=== PATIENT | female | born 1955 | race Caucasian/White ===

== ENCOUNTER 2016-12-20 07:48 | Emergency (ER) | payer MEDICARE, OTHER ==
[2016-12-20 08:14] VITALS: RESP 18; TEMP 98.6
[2016-12-20] MEDS ORDERED: ONDANSETRON 4 MG/2 ML VIAL IVP STA (08:15)
[2016-12-20] MEDS ORDERED: SODIUM CHLORIDE 0.9% 1,000 ML IV STA (08:15)
--- NOTE | 2016-12-20 08:30 | ED ---
Nausea/Vomiting/Diarrhea HPI - General Chief complaint: Nausea/Vomiting/Diarrhea Stated complaint: sick, vomiting Time Seen by Provider: 12/20/16 08:15 Source: patient, RN notes reviewed Mode of arrival: wheelchair Limitations: no limitations - History of Present Illness Initial comments: 61-year-old female presents emergency Department with chief complaint of nausea vomiting diarrhea that started yesterday. Patient states that her granddaughter had similar symptoms. Patient denies any fever or chills. Patient denies any chest pain, shortness of breath. She states she does have some back pain though the back pain has been gone for a while. Patient denies any dysuria hematuria she did admit to having a recent UTI. Patient denies any recent abdominal surgeries. She does have a history of a cholecystectomy. Patient states that she's been having her back pain over a few months and has not seen her primary care physician. States it's central lower to right side. - Related Data Home Medications Medication Instructions Recorded Confirmed Atorvastatin [Lipitor] 40 mg PO HS 12/20/16 12/20/16 Budesonide/Formoterol Fumarate 2 puff INHALATION RT-BID 12/20/16 12/20/16 [Symbicort 80-4.5 Mcg Inhaler] Ezetimibe [Zetia] 10 mg PO DAILY 12/20/16 12/20/16 Irbesartan 300 mg PO DAILY 12/20/16 12/20/16 Modafinil [Provigil] 300 mg PO DAILY 12/20/16 12/20/16 Montelukast [Singulair] 10 mg PO HS 12/20/16 12/20/16 Pregabalin [Lyrica] 75 mg PO BID 12/20/16 12/20/16 oxyCODONE-APAP 5-325MG [Percocet 1 tab PO Q6HR PRN 12/20/16 12/20/16 5-325 mg] Previous Rx's Medication Instructions Recorded Ondansetron Odt [Zofran Odt] 4 mg PO Q8HR PRN #10 tab 12/20/16 Allergies Allergy/AdvReac Type Severity Reaction Status Date / Time No Known Allergies Allergy Verified 12/20/16 08:40 Review of Systems ROS Statement: Those systems with pertinent positive or pertinent negative responses have been documented in the HPI. ROS Other: All systems not noted in ROS Statement are negative. Past Medical History Past Medical History: Asthma, Cancer, Fibromyalgia, Hyperlipidemia, Hypertension , Osteoarthritis (OA), Pneumonia Additional Past Medical History / Comment(s): chronic back pain History of Any Multi-Drug Resistant Organisms: None Reported Past Surgical History: Orthopedic Surgery, Tonsillectomy Additional Past Surgical History / Comment(s): tumor removal , right knee , vaginal tumor (cancer) Past Psychological History: No Psychological Hx Reported Smoking Status: Former smoker Past Alcohol Use History: None Reported Past Drug Use History: None Reported General Exam Limitations: no limitations General appearance: alert, in no apparent distress Head exam: Present: atraumatic, normocephalic, normal inspection Neck exam: Present: normal inspection. Absent: tenderness, meningismus, lymphadenopathy Respiratory exam: Present: normal lung sounds bilaterally. Absent: respiratory distress, wheezes, rales, rhonchi, stridor Cardiovascular Exam: Present: regular rate, normal rhythm, normal heart sounds. Absent: systolic murmur, diastolic murmur, rubs, gallop, clicks GI/Abdominal exam: Present: soft, tenderness (Mild diffuse), normal bowel sounds. Absent: distended, guarding, rebound, rigid Back exam: Present: full ROM. Absent: tenderness, CVA tenderness (R), CVA tenderness (L), muscle spasm, paraspinal tenderness, vertebral tenderness Neurological exam: Present: alert, oriented X3, CN II-XII intact Skin exam: Present: warm, dry, intact, normal color. Absent: rash Course Vital Signs 12/20/16 12/20/16 12/20/16 08:08 09:58 11:14 Temperature 98.6 F Pulse Rate 104 H 95 62 Respiratory 18 18 18 Rate Blood Pressure 126/75 150/66 147/68 O2 Sat by Pulse 96 97 95 Oximetry Medical Decision Making - Medical Decision Making 61-year-old female presented for abdominal pain nausea vomiting diarrhea. Patient has gastroenteritis. Patient will be discharged with Zofran. Return parameters were discussed. - Lab Data Result diagrams: 12/20/16 10:27 12/20/16 10:27 Lab Results 12/20/16 12/20/16 12/20/16 Range/Units 10:27 10:27 10:27 WBC 13.5 H (3.8-10.6) k/uL RBC 4.87 (3.80-5.40) m/uL Hgb 14.1 (11.4-16.0) gm/dL Hct 43.7 (34.0-46.0) % MCV 89.7 (80.0-100.0) fL MCH 28.9 (25.0-35.0) pg MCHC 32.3 (31.0-37.0) g/dL RDW 12.3 (11.5-15.5) % Plt Count 276 (150-450) k/uL Neutrophils % 94 % Lymphocytes % 2 % Monocytes % 2 % Eosinophils % 1 % Basophils % 0 % Neutrophils # 12.7 H (1.3-7.7) k/uL Lymphocytes # 0.3 L (1.0-4.8) k/uL Monocytes # 0.3 (0-1.0) k/uL Eosinophils # 0.1 (0-0.7) k/uL Basophils # 0.0 (0-0.2) k/uL Sodium 143 (137-145) mmol/L Potassium 3.8 (3.5-5.1) mmol/L Chloride 105 (98-107) mmol/L Carbon Dioxide 23 (22-30) mmol/L Anion Gap 15 mmol/L BUN 26 H (7-17) mg/dL Creatinine 0.55 (0.52-1.04) mg/dL Est GFR (MDRD) Af Amer >60 (>60 ml/min/1.73 sqM) Est GFR (MDRD) Non-Af >60 (>60 ml/min/1.73 sqM) Glucose 124 H (74-99) mg/dL Calcium 9.2 (8.4-10.2) mg/dL Total Bilirubin 0.5 (0.2-1.3) mg/dL AST 26 (14-36) U/L ALT 40 (9-52) U/L Alkaline Phosphatase 113 (38-126) U/L Troponin I <0.012 (0.000-0.034) ng/mL Total Protein 7.1 (6.3-8.2) g/dL Albumin 4.2 (3.5-5.0) g/dL Amylase 59 (30-110) U/L Lipase 33 (23-300) U/L Urine Color Urine Appearance (Clear) Urine pH (5.0-8.0) Urine Protein (Negative) Urine Glucose (UA) (Negative) Urine Ketones (Negative) Urine Blood (Negative) Urine Nitrate (Negative) Urine Bilirubin (Negative) Urine Urobilinogen (<2.0) mg/dL Ur Leukocyte Esterase (Negative) Urine RBC (0-5) /hpf Urine WBC (0-5) /hpf Ur Squamous Epith Cells (0-4) /hpf Urine Mucus (None) /hpf 12/20/16 Range/Units 12:24 WBC (3.8-10.6) k/uL RBC (3.80-5.40) m/uL Hgb (11.4-16.0) gm/dL Hct (34.0-46.0) % MCV (80.0-100.0) fL MCH (25.0-35.0) pg MCHC (31.0-37.0) g/dL RDW (11.5-15.5) % Plt Count (150-450) k/uL Neutrophils % % Lymphocytes % % Monocytes % % Eosinophils % % Basophils % % Neutrophils # (1.3-7.7) k/uL Lymphocytes # (1.0-4.8) k/uL Monocytes # (0-1.0) k/uL Eosinophils # (0-0.7) k/uL Basophils # (0-0.2) k/uL Sodium (137-145) mmol/L Potassium (3.5-5.1) mmol/L Chloride (98-107) mmol/L Carbon Dioxide (22-30) mmol/L Anion Gap mmol/L BUN (7-17) mg/dL Creatinine (0.52-1.04) mg/dL Est GFR (MDRD) Af Amer (>60 ml/min/1.73 sqM) Est GFR (MDRD) Non-Af (>60 ml/min/1.73 sqM) Glucose (74-99) mg/dL Calcium (8.4-10.2) mg/dL Total Bilirubin (0.2-1.3) mg/dL AST (14-36) U/L ALT (9-52) U/L Alkaline Phosphatase (38-126) U/L Troponin I (0.000-0.034) ng/mL Total Protein (6.3-8.2) g/dL Albumin (3.5-5.0) g/dL Amylase (30-110) U/L Lipase (23-300) U/L Urine Color Yellow Urine Appearance Clear (Clear) Urine pH 6.0 (5.0-8.0) Urine Protein 1+ H (Negative) Urine Glucose (UA) Negative (Negative) Urine Ketones Trace H (Negative) Urine Blood Small H (Negative) Urine Nitrate Negative (Negative) Urine Bilirubin Negative (Negative) Urine Urobilinogen <2.0 (<2.0) mg/dL Ur Leukocyte Esterase Negative (Negative) Urine RBC 6 H (0-5) /hpf Urine WBC <1 (0-5) /hpf Ur Squamous Epith Cells 1 (0-4) /hpf Urine Mucus Occasional H (None) /hpf 12/20/16 12:47 EKG performed at 19:13 normal sinus rhythm with a rate of 95, NH interval 162, QRS duration 98, QT/QTC 396/497 Disposition Clinical Impression: Gastroenteritis Disposition: HOME SELF-CARE Condition: Stable Instructions: Gastroenteritis (ED) Additional Instructions: Please return to the Emergency Department if symptoms worsen or any other concerns. Prescriptions: Ondansetron Odt [Zofran Odt] 4 mg PO Q8HR PRN #10 tab PRN Reason: Nausea Time of Disposition: 12:47
--- NOTE | 2016-12-20 10:31 | XR ---
EXAMINATION TYPE: XR KUB DATE OF EXAM: 12/20/2016 10:21 AM COMPARISON: NONE HISTORY: 61-year-old female with pain, nausea, and vomiting for 2 days FINDINGS: Lung bases are clear. No evidence for free air. Scattered small colonic air-fluid levels are present on both the right and left. Cholecystectomy clips. No dilated bowel. No significant stool burden. IMPRESSION: Nonobstructive bowel gas pattern. Small colonic air-fluid levels on the right and left could reflect a mild ileus or enteritis.
[2016-12-20 10:36] LABS: Basophils % (A) 0 %; CH 29.5; Eosinophils # (A) 0.1 k/uL (0-0.7); Eosinophils % (A) 1 %; HCT 43.7 % (34.0-46.0); HDW 2.38; HGB 14.1 gm/dL (11.4-16.0); Luc # (Auto) 0.11; Luc % (Auto) 1; Lymphocytes # (A) 0.3 k/uL (1.0-4.8); Lymphocytes % (A) 2 %; MCH 28.9 pg (25.0-35.0); MCHC 32.3 g/dL (31.0-37.0); MCV 89.7 fL (80.0-100.0); Mean Platelet Volume 6.9; Monocytes # (A) 0.3 k/uL (0-1.0); Monocytes % (A) 2 %; Neutrophils # (A) 12.7 k/uL (1.3-7.7); Neutrophils % (A) 94 %; RBC 4.87 m/uL (3.80-5.40); RDW 12.3 % (11.5-15.5); WBC 13.5 k/uL (3.8-10.6); WBC (Perox) 13.98
[2016-12-20 10:46] LABS: ALT 40 U/L (9-52); AST 26 U/L (14-36); Alkaline Phosphatase 113 U/L (38-126); Amylase 59 U/L (30-110); Anion Gap 15 mmol/L; Blood Urea Nitrogen 26 mg/dL (7-17); Calcium 9.2 mg/dL (8.4-10.2); Carbon Dioxide 23 mmol/L (22-30); Chloride 105 mmol/L (98-107); Glucose 124 mg/dL (74-99); Non-African American GFR(MDRD) >60 (>60 ml/min/1.73 sqM); Potassium 3.8 mmol/L (3.5-5.1); Sodium 143 mmol/L (137-145); Total Bilirubin 0.5 mg/dL (0.2-1.3); Total Protein 7.1 g/dL (6.3-8.2)
[2016-12-20] MEDS ORDERED: RX INFO: IV CONTRAST WAS GIVEN 1 EACH MISC MISCELLANE PRN (11:06)
[2016-12-20] MEDS ORDERED: MORPHINE SULFATE 2 MG/ML SYRINGE IVP ONE (11:11)
[2016-12-20] MEDS ORDERED: MORPHINE SULFATE 4 MG/ML SYRINGE IVP STA (11:12)
--- NOTE | 2016-12-20 12:03 | CT ---
EXAMINATION TYPE: CT abdomen pelvis w con DATE OF EXAM: 12/20/2016 11:41 AM COMPARISON: NONE HISTORY: Nausea, Vomitting and Diarrhea for [address] DLP: 1763 mGycm CONTRAST: CT scan of the abdomen and pelvis is performed without Oral Contrast and with IV Contrast, patient in jected with 100 ml mL of Omnipaque 300. FINDINGS: LUNG BASES-: No visible nodule. No infiltrate. LIVER/GB: Cholecystectomy clips are in place. No space occupying hepatic lesion. Biliary tree is o f normal caliber. PANCREAS: No inflammation. No distinct mass. SPLEEN: No splenic enlargement. No lesion seen. ADRENALS: Right adrenal nodule measures 2.2 cm and may reflect an adenoma. Left adrenal gland is unre markable. KIDNEYS/BLADDER: No hydronephrosis. No nephrolithiasis. No disctinct renal mass. Urinary bladder g rossly unremarkable. BOWEL: Normal appendix. There is fluid distended small bowel without dilatation which may reflect gas troenteritis. Colon is of normal caliber without inflammatory process. GENITAL ORGANS: No gross abnormality. LYMPH NODES: No greater than 1cm abdominal or pelvic lymph nodes are appreciated. AORTA: No significant abnormality. OSSEOUS STRUCTURES: No significant abnormality is seen. OTHER: No significant additional abnormality is seen. IMPRESSION: 1. Correlate for gastroenteritis.
[2016-12-20 12:43] LABS: Appearance,Urine Clear (Clear); Bilirubin,Urine Negative (Negative); Glucose,Urine (UA) Negative (Negative); Ketones,Urine Trace (Negative); Leukocyte Esterase,Urine Negative (Negative); Mucus,Urine Occasional /hpf; Nitrite,Urine Negative (Negative); Particle Count 4000; Protein,Urine 1+ (Negative); RBC,Urine 6 /hpf (0-5); Squamous Epithelial Cell,Urine 1 /hpf (0-4); UA Billing (MACRO vs. MICRO) MICRO; Urobilinogen,Urine <2.0 mg/dL (<2.0); WBC,Urine <1 /hpf (0-5)
[2016-12-20 12:52] LABS: Specific Gravity,Urine >1.050 (1.001-1.035)
[2016-12-20 13:03] VITALS: BP 115/69; PULSE 97
== END 2016-12-20 13:03 | disposition home or self-care (01) ==
LOC: EC 07:48
DX: K52.9 Noninfective gastroenteritis and colitis, unspecified (principal); G89.29 Other chronic pain; M54.9 Dorsalgia, unspecified; M79.7 Fibromyalgia; E78.5 Hyperlipidemia, unspecified; I10 Essential (primary) hypertension; J45.909 Unspecified asthma, uncomplicated; Z79.899 Other long term (current) drug therapy; Z87.891 Personal history of nicotine dependence
CPT/HCPCS: 36415; 93005; 80053; 82150; 83690; 84484; 85025; 81001; 74000; 74177; 96374; 96375; 96361 ×3; 99284; J2405; J2270; Q9967

== ENCOUNTER → 2017-02-05 | Outpatient (CLI) | payer MEDICARE, OTHER ==
--- NOTE | 2017-02-05 09:47 | US ---
EXAMINATION TYPE: US thyroid st tissue head/neck DATE OF EXAM: 02/05/2017 9:23 AM COMPARISON: NONE CLINICAL HISTORY: E03.9 Acquired Hypothyroidism,I01.0 Enlarged thyroid. GLAND SIZE: Right Lobe: 4.7 x 1.2 x 2.1 cm Overall Parenchyma: heterogenous Left Lobe: 4.4 x 1.3 x 1.7 cm Overall Parenchyma: heterogeneous Isthmus Thickness: 0.3 cm NODULES RIGHT: # of nodules measured on right: 4 1. 1.1 X 0.6 x 0.8 cm hypoechoic cystic nodule at the upper pole with well-defined margins; with an internal calcification. This nodule is wider than tall and shows no intranodular vascularity. Prior size: no previous here 2. 0.7 X 0.5 x 0.5 cm hypoechoic mixed cystic nodule at the upper pole with well-defined margins. T his nodule is wider than tall and shows no intranodular vascularity. Prior size: no previous here 3. 0.6 X 0.5 x 0.5 cm hypoechoic mixed cystic nodule at the lower pole with well-defined margins. T his nodule is wider than tall and shows no intranodular vascularity. Prior size: no previous here 4. 0.6 X 0.3 x 0.4 cm hypoechoic cystic nodule at the lower pole with well-defined margins. This no dule is wider than tall and shows no intranodular vascularity. Prior size: no previous here LEFT: # of nodules measured on left: 1 1. 1.2 X 0.8 x 0.8 cm hypoechoic solid nodule at the very lower pole with well-defined margins. Th is nodule is wider than tall and shows minimal intranodular vascularity. Prior size: no previous here ISTHMUS: # of nodules measured in the isthmus: 0 TECHNOLOGIST IMPRESSION: Bilateral neck scanned, no abnormal lymphadenopathy noted. Thyroid gland is normal in size and heterogeneous in appearance. There are scattered subcentimeter no dules marked by technologist in the right thyroid lobe. Nodules just over 1 cm identified bilaterally . Presence of multiple nodules bilaterally makes malignancy unlikely. IMPRESSION: Ultrasound findings are consistent with multinodular goiter as detailed above. No worrisome nodules d istinctly identified.
== END | disposition home or self-care (01) ==
LOC: RADUSWWP 08:49
PROVIDERS: ATTEND Family Medicine
DX: E04.9 Nontoxic goiter, unspecified (principal); E03.9 Hypothyroidism, unspecified
CPT/HCPCS: 76536

== ENCOUNTER 2017-03-01 07:33 | Emergency (ER) | payer MEDICARE, OTHER ==
[2017-03-01] MEDS ORDERED: HYDROmorphone 1 MG/ML 1 ML SYRINGE IM STA ×2 (08:15→10:08)
[2017-03-01] MEDS ORDERED: ORPHENADRINE 30 MG/ML 2 ML VIAL IM STA (08:15)
--- NOTE | 2017-03-01 08:26 | ED ---
Back Pain HPI - General Chief Complaint: Back Pain/Injury Stated Complaint: rt side hip or back pain Time Seen by Provider: 03/01/17 08:06 Source: patient Limitations: no limitations - History of Present Illness Initial Comments: 61-year-old female patient presents to emergency department today for complaints of right lower back pain, and right hip pain. Patient states that she has had lower back issues since a fall a couple of years ago. Patient states that over the last 2 weeks the pain in her right hip and right lower back have been worsening. One week ago patient did see a chiropractor, she states this did not help. Patient states that the pain worsens with any flexion of the right hip. Patient states yesterday her right leg went numb. Patient states pain radiates down her leg. Patient denies any loss of bowel or bladder control or saddle anesthesia. Patient denies any injury. Patient denies any chest pain, shortness of breath, abdominal pain, nausea, vomiting, constipation, diarrhea, dark, bloody, or black stools. Patient denies any hematuria, dysuria, or urinary urgency. Patient reports she has been urinating more frequently. - Related Data Home Medications Medication Instructions Recorded Confirmed Atorvastatin [Lipitor] 40 mg PO HS 12/20/16 03/01/17 Budesonide/Formoterol Fumarate 2 puff INHALATION RT-BID 12/20/16 03/01/17 [Symbicort 80-4.5 Mcg Inhaler] Ezetimibe [Zetia] 10 mg PO HS 12/20/16 03/01/17 Modafinil [Provigil] 300 mg PO DAILY 12/20/16 03/01/17 Montelukast [Singulair] 10 mg PO HS 12/20/16 03/01/17 Pregabalin [Lyrica] 75 mg PO BID 12/20/16 03/01/17 oxyCODONE-APAP 5-325MG [Percocet 1 tab PO Q6HR PRN 12/20/16 03/01/17 5-325 mg] Ibuprofen [Motrin] 800 mg PO Q6HR PRN 03/01/17 03/01/17 Irbesartan/Hydrochlorothiazide 1 tab PO DAILY 03/01/17 03/01/17 [Irbesartan-Hctz 300-12.5 mg Tb] Previous Rx's Medication Instructions Recorded Cyclobenzaprine [Flexeril] 10 mg PO TID PRN #15 tab 03/01/17 methylPREDNISolone [Medrol Dose 4 mg PO DIRECTED #1 pack 03/01/17 Pack] Allergies Allergy/AdvReac Type Severity Reaction Status Date / Time No Known Allergies Allergy Verified 03/01/17 08:53 Review of Systems ROS Statement: Those systems with pertinent positive or pertinent negative responses have been documented in the HPI. ROS Other: All systems not noted in ROS Statement are negative. Past Medical History Past Medical History: Asthma, Cancer, Fibromyalgia, Hyperlipidemia, Hypertension , Osteoarthritis (OA), Pneumonia Additional Past Medical History / Comment(s): chronic back pain History of Any Multi-Drug Resistant Organisms: None Reported Past Surgical History: Orthopedic Surgery, Tonsillectomy Additional Past Surgical History / Comment(s): tumor removal , right knee , vaginal tumor (cancer) Past Psychological History: No Psychological Hx Reported Smoking Status: Former smoker Past Alcohol Use History: None Reported Past Drug Use History: None Reported General Exam Limitations: no limitations General appearance: alert, in no apparent distress Head exam: Present: atraumatic, normocephalic, normal inspection Eye exam: Present: normal appearance, PERRL, EOMI. Absent: scleral icterus, conjunctival injection, periorbital swelling ENT exam: Present: normal exam, mucous membranes moist Neck exam: Present: normal inspection. Absent: tenderness, meningismus, lymphadenopathy Respiratory exam: Present: normal lung sounds bilaterally. Absent: respiratory distress, wheezes, rales, rhonchi, stridor Cardiovascular Exam: Present: regular rate, normal rhythm, normal heart sounds. Absent: systolic murmur, diastolic murmur, rubs, gallop, clicks GI/Abdominal exam: Present: soft, normal bowel sounds. Absent: distended, tenderness, guarding, rebound, rigid Extremities exam: Present: normal inspection, full ROM, tenderness (Over the right hip joint), normal capillary refill. Absent: pedal edema, joint swelling Back exam: Present: normal inspection, full ROM, tenderness (Over the right SI joint). Absent: paraspinal tenderness, vertebral tenderness Neurological exam: Present: alert, oriented X3, CN II-XII intact Psychiatric exam: Present: normal affect, normal mood Skin exam: Present: warm, dry, intact, normal color. Absent: rash Course Vital Signs 03/01/17 03/01/17 07:40 08:16 Temperature 97.1 F L Pulse Rate 120 H 86 Respiratory 20 18 Rate Blood Pressure 181/110 118/56 O2 Sat by Pulse 94 L 95 Oximetry Medical Decision Making - Medical Decision Making 60-year-old female patient presents to emergency department today for complaints of right lower back pain and hip pain. Patient did get x-ray of the lumbar spine as well as the hip which did reveal some degenerative arthritis. X -ray was concerning for possible kidney stone, CT of the abdomen without contrast was obtained that did not reveal any nephrolithiasis, and was consistent with findings of arthritis. Patient will be given IM injections of pain medication as well as IM Solu-Medrol. Patient was discharged home with a prescription for Flexeril and Medrol Dosepak. Patient will continue take her home prescription of Percocet for pain control. Patient instructed regarding gentle stretching exercises, heat to the area, and follow-up with mechanical service specialist. Patient instructed to return for any new, worsening, or concerning symptoms. Patient verbalizes understanding and agrees this plan. - Lab Data Lab Results 03/01/17 Range/Units 09:05 Urine Color Yellow Urine Appearance Cloudy H (Clear) Urine pH 5.5 (5.0-8.0) Ur Specific [place] 1.017 (1.001-1.035) Urine Protein Negative (Negative) Urine Glucose (UA) Negative (Negative) Urine Ketones Negative (Negative) Urine Blood Small H (Negative) Urine Nitrite Negative (Negative) Urine Bilirubin Negative (Negative) Urine Urobilinogen <2.0 (<2.0) mg/dL Ur Leukocyte Esterase Moderate H (Negative) Urine RBC 8 H (0-5) /hpf Urine WBC 3 (0-5) /hpf Ur Squamous Epith Cells 3 (0-4) /hpf Urine Bacteria Many H (None) /hpf - Radiology Data Radiology results: report reviewed Three-view x-ray of the lumbar spine impression by Dr. Arevalo reveals multilevel mild degenerative disc disease of hypertrophic changes. Findings are suspicious for right-sided renal calculus. X-ray right hip and AP pelvis with impression by Dr. Arevalo reveals arthropathy of the hip joint or femoral acetabular impingement. CT of the abdomen and pelvis without contrast impression by Dr. Carroll reveals a stable 2.1 cm right adrenal mass. Degenerative changes within the hips and spine. No evidence of nephrolithiasis. Disposition Clinical Impression: Back pain, Degenerative arthritis of spine Disposition: HOME SELF-CARE Condition: Stable Instructions: Acute Low Back Pain (ED) Additional Instructions: Follow-up with career transition specialist. Take home pain medications as directed. Apply heat to the area 20 minutes at a time at least 4 times per day. Perform gentle stretching exercises. Follow-up with primary care physician in one to 2 days. Return for any new, worsening, or concerning symptoms. Prescriptions: Cyclobenzaprine [Flexeril] 10 mg PO TID PRN #15 tab PRN Reason: Muscle Spasm methylPREDNISolone [Medrol Dose Pack] 4 mg PO DIRECTED #1 pack Referrals: Jose L Zabala MD [Primary Care Provider] - 1-2 days Vanessa Torres DO [Doctor of Osteopathic Medicine] - 1-2 days Time of Disposition: 10:03
--- NOTE | 2017-03-01 09:09 | XR ---
EXAM TYPE: LUMBAR SPINE X RAY SERIES COMPARISON: NONE HISTORY: Pain TECHNIQUE: 3 views are submitted. FINDINGS: Alignment is anatomic. The pedicles are intact. The transverse processes are intact. There is no s pondylolysis or spondylolisthesis. Surgical clips in the right upper quadrant. There is a 1 cm calcification overlying the right kidney. Hypertrophic and degenerative changes of the spine are seen. 3 mm calcification adjacent to the L3-L4 disc interspace on the right. IMPRESSION: 1. Multilevel mild degenerative disc disease with hypertrophic changes. 2. Findings are suspicious for right-sided renal calculus.
--- NOTE | 2017-03-01 09:10 | XR ---
EXAMINATION TYPE: XR Hip RT and AP Pelvis DATE OF EXAM: 03/01/2017 8:45 AM COMPARISON: NONE HISTORY: Pain TECHNIQUE: A single AP view of the pelvis is obtained. Two views of the right hip are obtained. FINDINGS: There is no acute fracture/dislocation evident in the pelvis. The hip and sacroiliac join ts appear symmetric and unremarkable. The overlying soft tissue appears unremarkable. Two views of right hip show no acute fracture or dislocation. No focal lytic or sclerotic lesion see n in the proximal right femur. The overlying soft tissue is unremarkable. Arthropathy of the hip mary ints with hypertrophic change of the acetabulum may result in femoral acetabular impingement. Degener ative change lower lumbar spine. IMPRESSION: 1. Arthropathy of the hip joint correlate for femoral acetabular impingement.
[2017-03-01 09:14] LABS: Appearance,Urine Cloudy (Clear); Bacteria,Urine Many /hpf; Bilirubin,Urine Negative (Negative); Glucose,Urine (UA) Negative (Negative); Ketones,Urine Negative (Negative); Leukocyte Esterase,Urine Moderate (Negative); Nitrite,Urine Negative (Negative); PH, Urine 5.5 (5.0-8.0); Particle Count 17045; Protein,Urine Negative (Negative); RBC,Urine 8 /hpf (0-5); Specific Gravity,Urine 1.017 (1.001-1.035); Squamous Epithelial Cell,Urine 3 /hpf (0-4); UA Billing (MACRO vs. MICRO) MICRO; Urobilinogen,Urine <2.0 mg/dL (<2.0); WBC,Urine 3 /hpf (0-5)
--- NOTE | 2017-03-01 09:54 | CT ---
EXAMINATION TYPE: CT abdomen pelvis wo con DATE OF EXAM: 03/01/2017 9:34 AM COMPARISON: Previous study dated 12/20/2016. HISTORY: Rt hip and back pain CT DLP: 1192.1 mGycm Automated exposure control for dose reduction was used. FINDINGS: Visualized portions of the lungs are clear. There is no pleural or pericardial fluid. The h eart is not enlarged. Within the abdomen, the gallbladder has been removed. The liver and spleen appear normal. There is a stable, 2.1 x 1.7 cm right adrenal mass. The left adrenal gland appears normal. There is no evidence of hydronephrosis or nephrolithiasis. Limited views of the pancreas are normal. There is no significant retroperitoneal, iliac or inguinal adenopathy. The uterus is unremarkable. The ovaries are not visualized with certainty. The bladder is unremarkable. There is no significant diverticular change and there is no radiographic evidence of diverticulitis. There is moderate stool lobe. The appendix is normal. Small bowel loops are unremarkable. There is no free air and no free fluid identified. There is facet arthropathy at the L4-5 and L5-S1 levels. There is hypertrophic spondylosis in the spi ne. No destructive lesions are seen. There is degenerative change of both hips, greater on the right than left. IMPRESSION: 1. STABLE 2.1 CM RIGHT ADRENAL MASS. 2. DEGENERATIVE CHANGES WITHIN THE HIPS AND SPINE.
[2017-03-01] MEDS ORDERED: methylPREDNISolone SOD SUCCI 125 MG/2 ML VIAL IM ONE (10:04)
[2017-03-01 11:11] VITALS: BP 115/56; PULSE 55; RESP 20; TEMP 97.9
== END 2017-03-01 11:10 | disposition home or self-care (01) ==
LOC: EC 07:33
DX: M47.816 Spondylosis without myelopathy or radiculopathy, lumbar region (principal); M25.551 Pain in right hip; E78.5 Hyperlipidemia, unspecified; J45.909 Unspecified asthma, uncomplicated; I10 Essential (primary) hypertension; Z85.9 Personal history of malignant neoplasm, unspecified; Z87.891 Personal history of nicotine dependence; Z79.52 Long term (current) use of systemic steroids; Z79.899 Other long term (current) drug therapy
CPT/HCPCS: 99284; 96372 ×4; 81001; 72100; 73502; 74176; J2360; J2930; J1170

== ENCOUNTER → 2017-07-09 | Outpatient (CLI) | payer MEDICARE, OTHER ==
[2017-07-09 17:08] LABS: Basophils % (A) 0 %; CH 29.9; CHCM 33.5; Eosinophils # (A) 0.2 k/uL (0-0.7); Eosinophils % (A) 3 %; HCT 39.3 % (34.0-46.0); HDW 2.53; HGB 13.4 gm/dL (11.4-16.0); Luc # (Auto) 0.17; Luc % (Auto) 2; Lymphocytes # (A) 1.7 k/uL (1.0-4.8); Lymphocytes % (A) 23 %; MCH 30.5 pg (25.0-35.0); MCV 89.5 fL (80.0-100.0); Mean Platelet Volume 7.2; Monocytes # (A) 0.5 k/uL (0-1.0); Monocytes % (A) 7 %; Neutrophils # (A) 4.8 k/uL (1.3-7.7); Neutrophils % (A) 65 %; RBC 4.39 m/uL (3.80-5.40); RDW 12.4 % (11.5-15.5); WBC 7.4 k/uL (3.8-10.6)
[2017-07-09 17:14] LABS: ALT 43 U/L (9-52); AST 25 U/L (14-36); Alkaline Phosphatase 108 U/L (38-126); Anion Gap 12 mmol/L; Blood Urea Nitrogen 21 mg/dL (7-17); Calcium 9.2 mg/dL (8.4-10.2); Carbon Dioxide 24 mmol/L (22-30); Chloride 107 mmol/L (98-107); Glucose 116 mg/dL (74-99); Non-African American GFR(MDRD) >60 (>60 ml/min/1.73 sqM); Potassium 3.9 mmol/L (3.5-5.1); Sodium 143 mmol/L (137-145); Total Bilirubin 0.2 mg/dL (0.2-1.3); Total Protein 6.5 g/dL (6.3-8.2)
[2017-07-09 17:59] LABS: Vitamin B12 487 pg/mL (239-931)
== END ==
LOC: LABWHC1 16:20
PROVIDERS: ATTEND Nurse Practitioner Acute Care
DX: E55.9 Vitamin D deficiency, unspecified (principal); R41.3 Other amnesia
CPT/HCPCS: 36415; 80053; 82306; 82607; 84439; 84443; 84481; 85025

== ENCOUNTER → 2018-01-23 | Outpatient (CLI) | payer MEDICARE, OTHER ==
[2018-01-23 11:54] LABS: HCT 44.5 % (34.0-46.0); HGB 13.8 gm/dL (11.4-16.0); MCV 93.4 fL (80.0-100.0); Mean Platelet Volume 7.2; Platelet Count 301 k/uL (150-450); RBC 4.76 m/uL (3.80-5.40); RDW 12.7 % (11.5-15.5); WBC 7.6 k/uL (3.8-10.6)
[2018-01-23 11:58] LABS: ALT 31 U/L (9-52); AST 22 U/L (14-36); Alkaline Phosphatase 103 U/L (38-126); Anion Gap 12 mmol/L; Blood Urea Nitrogen 19 mg/dL (7-17); Calcium 9.8 mg/dL (8.4-10.2); Carbon Dioxide 26 mmol/L (22-30); Chloride 104 mmol/L (98-107); Cholesterol 186 mg/dL (<200); Glucose 111 mg/dL (74-99); HDL Cholesterol 53 mg/dL (40-60); LDL Cholesterol,Calculated 86 mg/dL (0-99); Magnesium 1.9 mg/dL (1.6-2.3); Phosphorus 3.7 mg/dL (2.5-4.5); Potassium 4.5 mmol/L (3.5-5.1); Sodium 142 mmol/L (137-145); Total Bilirubin 0.2 mg/dL (0.2-1.3); Total Protein 6.6 g/dL (6.3-8.2); Triglycerides 234 mg/dL (<150)
--- NOTE | 2018-01-23 13:20 | US ---
EXAMINATION TYPE: US thyroid st tissue head/neck DATE OF EXAM: 01/23/2018 COMPARISON: 2017 CLINICAL HISTORY: 62-year-old female R22.0 Abnormal Swelling mass of Neck. TECHNIQUE: Multiple sonographic images of the thyroid gland are obtained. FINDINGS: ASBESTOS ABATEMENT WORKER NOTES: Pt has short neck for scanning GLAND SIZE: Right Lobe: 4.3 x 1.3 x 1.5 cm Overall Parenchyma: heterogenous Left Lobe: 3.7 x 1.3 x 1.6 cm Overall Parenchyma: heterogeneous Isthmus Thickness: 0.4 cm NODULES RIGHT: # of nodules measured on right: 1 1. 1.0 X 0.5 x 0.5 cm hypoechoic mixed nodule at the upper pole with well-defined margins; present with microcalcifications. This nodule is wider than tall and shows no intranodular vascularity. Prior size:1.1 X 0.6 x 0.8 cm 2. 0.5 X 0.5 x 0.6 cm hypoechoic mixed nodule at the upper pole with well-defined margins; . This n odule is wider than tall and shows no intranodular vascularity. Prior size: 0.7 X 0.5 x 0.5 cm 3. There are a couple 6 x 5 mm cysts in the lower pole. LEFT: # of nodules measured on left: 1 1. 0.7 X 0.7 x 0.5 cm heterogeneous nodule at the lower pole. This nodule is round and shows intran odular vascularity. Prior size:1.2 X 0.8 x 0.8 cm Bilateral neck scanned, no evidence of lymphadenopathy. IMPRESSION: 1. Multiple thyroid nodules. Largest on the right measures 1 cm, not significant change from 02/05/2017 . 2. Largest on the left measures 7 mm, decreased in size from 1.2 cm, previously. 3. No new suspicious nodules seen.
[2018-01-23 16:28] LABS: Parathyroid Hormone Intact 22.4 pg/mL (14.0-72.0)
[2018-01-23 16:56] LABS: Iron Saturation 38.6 (12.00-45.00)
[2018-01-23 17:07] LABS: Vitamin D 25 Hydroxy 29.9 ng/mL (30.0-100.0)
[2018-01-23 17:41] LABS: Folate, Serum 22.1 ng/mL
[2018-01-25 06:25] LABS: Vitamin B1 60 ug/L (38-122)
[2018-01-25 08:44] LABS: Vitamin A 55 ug/dL (38-106)
[2018-01-27 05:38] LABS: Zinc, Serum 100 ug/dL (60-130)
[2018-01-28 16:25] LABS: Selenium 119 mcg/L (63-160)
== END | disposition home or self-care (01) ==
LOC: RADUSWWP 10:19
PROVIDERS: ATTEND Surgery Plastic and Reconstructive Surgery
DX: E04.2 Nontoxic multinodular goiter (principal); R22.0 Localized swelling, mass and lump, head; R13.10 Dysphagia, unspecified; E66.01 Morbid (severe) obesity due to excess calories; D50.8 Other iron deficiency anemias; E55.9 Vitamin D deficiency, unspecified
CPT/HCPCS: 36415; 76536; 80053; 80061; 82306; 82525; 82607; 82728; 82746; 83036; 83540; 83550; 83735; 83970; 84100; 84134; 84255; 84425; 84443; 84590; 84630; 85027

== ENCOUNTER → 2018-06-17 | Outpatient (CLI) | payer MEDICARE, OTHER ==
[2018-06-17 15:41] LABS: Basophils % (A) 0 %; Eosinophils # (A) 0.2 k/uL (0-0.7); Eosinophils % (A) 2 %; HCT 40.6 % (34.0-46.0); HGB 13.2 gm/dL (11.4-16.0); Lymphocytes # (A) 1.6 k/uL (1.0-4.8); Lymphocytes % (A) 22 %; MCH 29.2 pg (25.0-35.0); MCHC 32.5 g/dL (31.0-37.0); MCV 89.9 fL (80.0-100.0); Monocytes # (A) 0.4 k/uL (0-1.0); Monocytes % (A) 5 %; Neutrophils # (A) 5.1 k/uL (1.3-7.7); Neutrophils % (A) 68 %; Platelet Count 270 k/uL (150-450); RBC 4.51 m/uL (3.80-5.40); RDW 12.6 % (11.5-15.5); WBC 7.5 k/uL (3.8-10.6)
[2018-06-17 16:04] LABS: ALT 34 U/L (9-52); AST 26 U/L (14-36); Albumin 3.8 g/dL (3.5-5.0); Alkaline Phosphatase 109 U/L (38-126); Anion Gap 9 mmol/L; Blood Urea Nitrogen 18 mg/dL (7-17); Calcium 9.4 mg/dL (8.4-10.2); Carbon Dioxide 26 mmol/L (22-30); Chloride 106 mmol/L (98-107); Glucose 148 mg/dL (74-99); Potassium 4.3 mmol/L (3.5-5.1); Sodium 141 mmol/L (137-145); Total Bilirubin 0.2 mg/dL (0.2-1.3); Total Protein 6.3 g/dL (6.3-8.2)
[2018-06-17 16:19] LABS: T4, Free (Free Thyroxine) 1.03 ng/dL (0.78-2.19)
== END | disposition home or self-care (01) ==
LOC: LABWHC1 14:49
PROVIDERS: ATTEND Nurse Practitioner Acute Care
DX: E55.9 Vitamin D deficiency, unspecified (principal); R41.3 Other amnesia
CPT/HCPCS: 36415; 80053; 82306; 82607; 84439; 84443; 84481; 85025

== ENCOUNTER 2019-02-25 10:50 | Emergency (ER) | payer MEDICARE, OTHER ==
[2019-02-25 11:19] VITALS: PULSE 91
--- NOTE | 2019-02-25 11:59 | ED ---
Lower Extremity Injury HPI - General Chief Complaint: Extremity Injury, Lower Stated Complaint: Lower Leg Swelling Time Seen by Provider: 02/25/19 11:23 Source: patient, RN notes reviewed Mode of arrival: wheelchair Limitations: no limitations - History of Present Illness Initial Comments: 63-year-old female presents emergency Department chief complaint of right knee pain. Patient states she injured it 2 months ago states that she fell on it states that is bruised and swollen. Patient states she had persistent swelling and worsening pain. Patient had no x-rays or evaluation of this injury. Patient had prior knee surgery. Patient denies any paresthesias. She states that her right knee swells up already to her foot. Patient has no history of blood clots. Patient denies any chest pain or shortness breath. - Related Data Home Medications Medication Instructions Recorded Confirmed Atorvastatin [Lipitor] 40 mg PO DAILY 12/20/16 02/25/19 Montelukast [Singulair] 10 mg PO DAILY 12/20/16 02/25/19 Pregabalin [Lyrica] 75 mg PO HS 12/20/16 02/25/19 Irbesartan/Hydrochlorothiazide 1 tab PO DAILY 03/01/17 02/25/19 [Irbesartan-Hctz 300-12.5 mg Tb] Hydrocodone/Acetaminophen [[place] 1 tab PO BID 01/30/18 02/25/19 7.5-325] Allergies Allergy/AdvReac Type Severity Reaction Status Date / Time No Known Allergies Allergy Verified 02/25/19 11:55 Review of Systems ROS Statement: Those systems with pertinent positive or pertinent negative responses have been documented in the HPI. ROS Other: All systems not noted in ROS Statement are negative. Past Medical History Past Medical History: Asthma, Cancer, Fibromyalgia, Hyperlipidemia, Hypertension, Osteoarthritis (OA), Pneumonia Additional Past Medical History / Comment(s): chronic back pain History of Any Multi-Drug Resistant Organisms: None Reported Past Surgical History: Orthopedic Surgery, Tonsillectomy Additional Past Surgical History / Comment(s): tumor removal , right knee , vaginal tumor (cancer) Past Psychological History: No Psychological Hx Reported Smoking Status: Former smoker General Exam Limitations: no limitations General appearance: alert, in no apparent distress Head exam: Present: atraumatic, normocephalic, normal inspection Respiratory exam: Present: normal lung sounds bilaterally. Absent: respiratory distress, wheezes, rales, rhonchi, stridor Cardiovascular Exam: Present: regular rate, normal rhythm, normal heart sounds. Absent: systolic murmur, diastolic murmur, rubs, gallop, clicks Extremities exam: Present: other (Right knee pain with valgus and varus, no laxity appreciated, neurovascular intact small surgical scar noted, tenderness patient has full range of motion of the right knee) Course Vital Signs 02/25/19 02/25/19 11:16 13:00 Temperature 98.3 F Pulse Rate 91 91 Respiratory 16 18 Rate Blood Pressure 154/91 152/110 O2 Sat by Pulse 96 98 Oximetry Medical Decision Making - Medical Decision Making 63-year-old female presented emergency department for right knee, right leg pain. Patient had an injury approximately 2 months ago but has had worsening symptoms. Patient noted increased swelling of her right knee. Ultrasound was negative for acute DVT. X-ray shows degenerative changes with mild effusion. Patient will follow-up with orthopedics for possible MRI and further evaluation. Disposition Clinical Impression: Effusion, right knee, Strain of right knee Disposition: HOME SELF-CARE Condition: Stable Instructions (If sedation given, give patient instructions): Knee Pain (ED), Knee Sprain (ED) Additional Instructions: Please return to the Emergency Department if symptoms worsen or any other concerns. Is patient prescribed a controlled substance at d/c from ED?: No Referrals: Robbin Figueredo MD [Primary Care Provider] - 1-2 days Curt Rosales MD [STAFF PHYSICIAN] - 1-2 days Time of Disposition: 13:42
--- NOTE | 2019-02-25 12:10 | XR ---
EXAMINATION TYPE: XR knee complete RT DATE OF EXAM: 02/25/2019 COMPARISON: NONE HISTORY: Pain TECHNIQUE: Four views are submitted. FINDINGS: Moderate severe hypertrophic and narrowing of the joint space. No erosive changes. Small amount of fl uid in the suprapatellar bursa suspected. Osseous structures are intact. No acute fracture seen. IMPRESSION: 1. No acute fracture or dislocation. Moderate to severe arthropathy in a pattern most typical of oste oarthritis. There is a small amount of fluid in the suprapatellar bursa. If there is concern for inte rnal derangement of the knee correlate with MRI.
--- NOTE | 2019-02-25 12:57 | US ---
EXAMINATION TYPE: US venous doppler duplex LE RT DATE OF EXAM: 02/25/2019 12:45 PM COMPARISON: None CLINICAL HISTORY: 63-year-old female Pain. Right leg pain and swelling x 2 weeks. SIDE PERFORMED: Right TECHNIQUE: The lower extremity deep venous system is examined utilizing real time linear array sonog rafa with graded compression, doppler sonography and color-flow sonography. FINDINGS: VESSELS IMAGED: External Iliac Vein (EIV) Common Femoral Vein Deep Femoral Vein Greater Saphenous Vein * Femoral Vein Popliteal Vein Small Saphenous Vein * Proximal Calf Veins (* superficial vessels) Right Leg: Negative for DVT No evidence of DVT in the right lower extremity. IMPRESSION: No evidence for DVT within the right lower extremity imaged from the groin to the upper calf.
[2019-02-25 13:02] VITALS: RESP 18
[2019-02-25] MEDS ORDERED: HYDROcodone/APAP 7.5-325MG 1 EACH TAB PO ONE (13:42)
[2019-02-25] MEDS ORDERED: ACET/COD 300 MG/30 MG STARTER PACK 6 TAB BTL PO STA (13:42)
[2019-02-25 14:39] VITALS: BP 149/102; TEMP 97.8
== END 2019-02-25 14:39 | disposition home or self-care (01) ==
LOC: EC 10:50
DX: S86.911A Strain of unspecified muscle(s) and tendon(s) at lower leg level, right leg, initial encounter (principal); M17.11 Unilateral primary osteoarthritis, right knee; J45.909 Unspecified asthma, uncomplicated; M79.7 Fibromyalgia; E78.5 Hyperlipidemia, unspecified; I10 Essential (primary) hypertension; Z85.44 Personal history of malignant neoplasm of other female genital organs; Z87.891 Personal history of nicotine dependence; Z79.891 Long term (current) use of opiate analgesic; Z79.899 Other long term (current) drug therapy; W19.XXXA Unspecified fall, initial encounter
CPT/HCPCS: 99284

== ENCOUNTER → 2019-10-06 | Outpatient (CLI) | payer MEDICARE, OTHER | END | disposition home or self-care (01) | LOC: LABWHC1 14:50 | PROVIDERS: ATTEND Urology | DX: E27.9 Disorder of adrenal gland, unspecified (principal) | CPT/HCPCS: 36415; 83835 ==

== ENCOUNTER → 2020-01-28 | Outpatient (CLI) | payer MEDICARE ==
[2020-01-28 11:48] LABS: African American GFR (CKD) >90 (>60 ml/min/1.73 sqM); Blood Urea Nitrogen 22 mg/dL (7-17); Non-African American GFR(CKD) >90 (>60 ml/min/1.73 sqM)
--- NOTE | 2020-01-28 13:14 | CT ---
EXAMINATION TYPE: CT abdomen pelvis w con DATE OF EXAM: 01/28/2020 HISTORY: Right flank pain and swelling with hematuria. CT DLP: 1625.3mGycm Automated Exposure Control for Dose Reduction was Utilized. CONTRAST: CT scan of the abdomen and pelvis is performed with IV Contrast, patient injected with 100 mL of Isov ue M300. COMPARISON: CT abdomen and pelvis from 2017 FINDINGS: LUNG BASES: No significant abnormality is appreciated. LIVER/GB: Cholecystectomy clips are noted. PANCREAS: No significant abnormality is seen. SPLEEN: No significant abnormality is seen. ADRENALS: Redemonstration of right adrenal mass measuring 2.4 x 1.5 cm stable in size from prior CT s uggesting benign etiology. KIDNEYS: No renal stones or hydronephrosis seen bilaterally. Symmetric cortical medullary uptake and excretion is present. No intraluminal calculus or suspicious mass in the bladder. BOWEL: Normal gas-filled appendix from cecum. Oral contrast does not reach colonic level. No suspicio us small or large bowel dilatation is seen. A few scattered colonic diverticula slightly redundant si gmoid colon. No CT evidence for acute diverticulitis. UTERUS/ADNEXA: Anteverted uterus. Normal size ovaries. LYMPH NODES: No greater than 1cm abdominal or pelvic lymph nodes are appreciated. OSSEOUS STRUCTURES: Moderate disc space narrowing and vacuum disc phenomenon L2-L3 and L4-L5 levels. Multilevel spurring in the thoracic spine. OTHER: No significant additional abnormality is seen. IMPRESSION: No significant acute finding is seen to account for patient's clinical symptoms of right- sided flank pain and hematuria.
== END ==
LOC: RADCTMAIN 10:53
PROVIDERS: ATTEND Urology
DX: E27.9 Disorder of adrenal gland, unspecified (principal); R10.9 Unspecified abdominal pain; R31.1 Benign essential microscopic hematuria
CPT/HCPCS: 82565; 84520; 74177; 36415; Q9967 ×2

== ENCOUNTER → 2020-07-07 | Outpatient (CLI) | payer MEDICARE ==
[2020-07-07 10:57] LABS: Basophils % (A) 1 %; Eosinophils # (A) 0.2 k/uL (0-0.7); Eosinophils % (A) 3 %; HCT 44.6 % (34.0-46.0); HGB 13.8 gm/dL (11.4-16.0); Lymphocytes # (A) 2.3 k/uL (1.0-4.8); Lymphocytes % (A) 35 %; MCH 28.2 pg (25.0-35.0); MCV 91.2 fL (80.0-100.0); Mean Platelet Volume 7.9; Monocytes # (A) 0.4 k/uL (0-1.0); Monocytes % (A) 5 %; Neutrophils # (A) 3.6 k/uL (1.3-7.7); Neutrophils % (A) 54 %; Platelet Count 248 k/uL (150-450); RBC 4.89 m/uL (3.80-5.40); RDW 12.2 % (11.5-15.5); WBC 6.6 k/uL (3.8-10.6)
[2020-07-07 17:44] LABS: African American GFR (CKD) 110.1 (60.0-200.0); Albumin 4.1 g/dL (3.80-4.90); Albumin/Globulin Ratio 1.95 (1.60-3.17); Anion Gap 9.7 mmol/L (4.00-12.00); BUN/Creat Ratio 31.67 Ratio (12.00-20.00); Calcium 9.1 mg/dL (8.7-10.3); Carbon Dioxide 23.3 mmol/L (21.6-31.8); Chol/HDL Ratio 5.16; Globulin 2.1 g/dL (1.6-3.3); LDL Cholesterol,Calculated 161.6 mg/dL (0.0-131.0); Potassium 4.1 mmol/L (3.5-5.5); Total Bilirubin 0.2 mg/dL (0.3-1.2); Total Protein 6.2 g/dL (6.2-8.2); VLDL Calculation 46.4 mg/dL (5.00-40.00)
== END | disposition home or self-care (01) ==
LOC: LABWHC1 09:30
PROVIDERS: ATTEND Family Medicine
DX: E03.9 Hypothyroidism, unspecified (principal); Z13.1 Encounter for screening for diabetes mellitus; Z13.0 Encounter for screening for diseases of the blood and blood-forming organs and certain disorders involving the immune mechanism
CPT/HCPCS: 36415; 80053; 80061; 84443; 85025

== ENCOUNTER → 2021-01-31 | Outpatient (CLI) | payer MEDICARE ==
[2021-01-31 15:46] LABS: African American GFR (CKD) 109.3 (60.0-200.0); Albumin 4.3 g/dL (3.80-4.90); Albumin/Globulin Ratio 1.79 (1.60-3.17); Anion Gap 8.7 mmol/L (4.00-12.00); Calcium 9.2 mg/dL (8.7-10.3); Carbon Dioxide 25.3 mmol/L (21.6-31.8); Chol/HDL Ratio 3.45; Globulin 2.4 g/dL (1.6-3.3); Non-African American GFR(CKD) 94.3 (60.0-200.0); Potassium 4.1 mmol/L (3.5-5.5); Total Bilirubin 0.2 mg/dL (0.2-1.2); Total Protein 6.7 g/dL (6.2-8.2)
== END | disposition home or self-care (01) ==
LOC: LABWHC1 07:36
PROVIDERS: ATTEND Family Medicine
DX: E78.2 Mixed hyperlipidemia (principal); E03.9 Hypothyroidism, unspecified
CPT/HCPCS: 36415; 80053; 80061; 84443

== ENCOUNTER → 2021-03-14 | Outpatient (CLI) | payer MEDICARE ==
--- NOTE | 2021-03-15 08:38 | US ---
EXAMINATION TYPE: US thyroid st tissue head/neck DATE OF EXAM: 03/14/2021 COMPARISON: US's CLINICAL HISTORY: E01.0 Enlarged thyroid. GLAND SIZE: Right Lobe: 5.1 x 1.7 x 1.8 cm Overall Parenchyma: heterogenous Left Lobe: 3.7 x 2.6 x 1.8 cm Overall Parenchyma: heterogeneous Isthmus Thickness: 0.2 cm NODULES RIGHT: # of nodules measured on right: 1 1. 0.7 X 0.5 x 0.7 cm, mid mid, solid or almost completely solid, hypoechoic nodule, which is wider than tall, with smooth margins, without echogenic foci. Prior size: 0.5 x 0.5 x 0.6 cm LEFT: # of nodules measured on left: 2 1. 0.7 X 0.8 x 0.4 cm, lower mid, solid or almost completely solid, isoechoic nodule, which is tall er than wide, with smooth margins, without echogenic foci. Prior size: 0.7 x 0.7 x 0.5 cm 2. 0.8 X 0.7 x 0.8 cm, lower medial, solid or almost completely solid, hypoechoic nodule, which is taller than wide, with smooth margins, without echogenic foci. Prior size: not imaged ISTHMUS: # of nodules measured in the isthmus: 0 Bilateral neck scanned, no evidence of lymphadenopathy. Technically difficult study as thyroid extends below clavicle and is difficult to image in its entire ty. There are multiple subcenter nodule noted on the right lobe, only dominant nodule measured. IMPRESSION: 1. Subcentimeter bilateral thyroid nodules. The inferior left lobe thyroid nodule is very suspicious and follow-up examination in one year is recommended. 2017 ACR TI-RADS LEVEL: TI-RADS 5 - Highly Suspicious: Follow if > 0.5 cm, FNA if > 1.0 cm *Highest TI-RADS level nodule reported
== END | disposition home or self-care (01) ==
LOC: RADUSWWP 16:08
PROVIDERS: ATTEND Family Medicine
DX: E04.2 Nontoxic multinodular goiter (principal)
CPT/HCPCS: 76536

== ENCOUNTER 2021-09-30 20:56 | Emergency (ER) | payer MEDICARE ==
[2021-09-30 21:06] VITALS: TEMP 98.1
--- NOTE | 2021-09-30 21:36 | ED ---
SOB HPI - General Source: patient Mode of arrival: wheelchair Limitations: no limitations <Rubin Douglass - Last Filed: 09/30/21 22:13> <Annabella Deal - Last Filed: 09/30/21 23:41> - General Chief Complaint: Upper Respiratory Infection Stated Complaint: BREANA Time Seen by Provider: 09/30/21 21:35 - History of Present Illness Initial Comments: 65 year-old female patient presents for evaluation of increased shortness of breath and cough over the last two weeks. States she is coughing up green sputum, initially it was clear. She denies any fever or chills. Reports nausea without vomiting. States she has no appetite. She does have history of Asthma and has been doing 3-4 breathing treatments per day. Denies any other medications for symptoms. Does report increased pain to the chest with deep breathing. Does have a grandaughter sick with similar symptoms. Exposed to child with RSV three weeks ago. Has had covid vaccine. Patient denies any recent rash, abdominal pain, diarrhea, constipation, back pain, numbness, tingling, dizziness, weakness, hematuria, dysuria, urinary urgency, urinary frequency, headache, visual changes, or any other complaints. (Annabella Deal) - Related Data Home Medications Medication Instructions Recorded Confirmed Hydrocodone/Acetaminophen [[place] 1 tab PO TID PRN 01/30/18 09/30/21 7.5-325] Albuterol Nebulized [Ventolin 2.5 mg INHALATION RT-QID PRN 09/30/21 09/30/21 Nebulized] Levothyroxine Sodium [Synthroid] 25 mcg PO DAILY 09/30/21 09/30/21 Naproxen 500 mg PO BID PRN 09/30/21 09/30/21 Pregabalin [Lyrica] 150 mg PO BID 09/30/21 09/30/21 Topiramate [Topamax] 50 mg PO BID 09/30/21 09/30/21 Previous Rx's Medication Instructions Recorded Azithromycin [Zithromax Z-pack (6 0 mg PO DIRECTED #6 tab 09/30/21 tabs)] predniSONE 50 mg PO DAILY #5 tablet 09/30/21 Allergies Allergy/AdvReac Type Severity Reaction Status Date / Time No Known Allergies Allergy Verified 09/30/21 23:21 Review of Systems ROS Other: All systems not noted in ROS Statement are negative. <Rubin Douglass - Last Filed: 09/30/21 22:13> ROS Other: All systems not noted in ROS Statement are negative. <Annabella Deal - Last Filed: 09/30/21 23:41> ROS Statement: Those systems with pertinent positive or pertinent negative responses have been documented in the HPI. Past Medical History Past Medical History: Asthma, Cancer, Fibromyalgia, Hyperlipidemia, Hyper tension, Osteoarthritis (OA), Pneumonia Additional Past Medical History / Comment(s): chronic back pain History of Any Multi-Drug Resistant Organisms: None Reported Past Surgical History: Orthopedic Surgery, Tonsillectomy Additional Past Surgical History / Comment(s): tumor removal , right knee , va ginal tumor (cancer) Past Psychological History: No Psychological Hx Reported Smoking Status: Never smoker Past Alcohol Use History: None Reported Past Drug Use History: None Reported <Rubin Douglass - Last Filed: 09/30/21 22:13> General Exam Limitations: no limitations <Rubin Douglass - Last Filed: 09/30/21 22:13> General appearance: alert, in no apparent distress, other (This is a well- developed, well-nourished adult female patient in no acute distress.) Eye exam: Present: normal appearance, PERRL, EOMI. Absent: scleral icterus, conjunctival injection, periorbital swelling ENT exam: Present: normal exam, normal oropharynx, mucous membranes moist Respiratory exam: Present: wheezes (Expiratory wheezing noted in the upper lung chahal posteriorly). Absent: respiratory distress, rales, rhonchi, stridor Cardiovascular Exam: Present: regular rate, normal rhythm, normal heart sounds. Absent: systolic murmur, diastolic murmur, rubs, gallop, clicks GI/Abdominal exam: Present: soft, normal bowel sounds. Absent: distended, tenderness, guarding, rebound, rigid Neurological exam: Present: alert, oriented X3, CN II-XII intact Psychiatric exam: Present: normal affect, normal mood Skin exam: Present: warm, dry, intact, normal color. Absent: rash <Annabella Deal - Last Filed: 09/30/21 23:41> Course Vital Signs 09/30/21 09/30/2109/30/21 21:02 22:19 23:13 Temperature 98.1 F Pulse Rate 91 82 85 Respiratory 20 18 18 Rate Blood Pressure 138/89 144/91 165/100 O2 Sat by Pulse 95 96 96 Oximetry Medical Decision Making - EKG Data -: EKG Interpreted by Me (EKG is normal sinus rhythm rate 92 MA 148 QRS 94 QTC 450) <Rubin Douglass - Last Filed: 09/30/21 22:13> - Lab Data Result diagrams: 09/30/21 22:09 09/30/21 22:09 <Annabella Deal - Last Filed: 09/30/21 23:41> - Medical Decision Making 65-year-old female patient presented to the emergency department today for evaluation of cough and shortness of breath worsening over the last 2 weeks. Does have history of asthma. Physical examination did reveal some expiratory wheezing in the posterior lung chahal. Labs reviewed and were unremarkable. Chest x-ray negative. She tested negative for COVID-19. We'll treat for COPD exacerbation with an erratic suited sputum color change. She also be put on steroids for a week. She is directed to increase breathing treatments to every 4 hours at home. Instructed to follow-up with her primary care physician for recheck in 1-2 days. Return parameters were discussed in detail. She verbalizes understanding and agrees with this plan. My attending is Dr. Douglass. (Annabella Deal) - Lab Data Lab Results 09/30/21 09/30/21 09/30/21 Range/Units 22:09 22:09 22:09 WBC 9.9 (3.8-10.6) k/uL RBC 4.83 (3.80-5.40) m/uL Hgb 14.5 (11.4-16.0) gm/dL Hct 42.7 (34.0-46.0) % MCV 88.4 (80.0-100.0) fL MCH 30.0 (25.0-35.0) pg MCHC 33.9 (31.0-37.0) g/dL RDW 12.7 (11.5-15.5) % Plt Count 285 (150-450) k/uL MPV 8.3 Neutrophils % 66 % Lymphocytes % 20 % Monocytes % 6 % Eosinophils % 6 % Basophils % 1 % Neutrophils # 6.5 (1.3-7.7) k/uL Lymphocytes # 2.0 (1.0-4.8) k/uL Monocytes # 0.6 (0-1.0) k/uL Eosinophils # 0.6 (0-0.7) k/uL Basophils # 0.1 (0-0.2) k/uL PT 10.1 (9.0-12.0) sec INR 0.9 (<1.2) APTT 21.4 L (22.0-30.0) sec Sodium 137 (137-145) mmol/L Potassium 3.8 (3.5-5.1) mmol/L Chloride 107 (98-107) mmol/L Carbon Dioxide 21 L (22-30) mmol/L Anion Gap 9 mmol/L BUN 18 H (7-17) mg/dL Creatinine 0.59 (0.52-1.04) mg/dL Est GFR (CKD-EPI)AfAm >90 (>60 ml/min/1.73 sqM) Est GFR (CKD-EPI)NonAf >90 (>60 ml/min/1.73 sqM) Glucose 111 H (74-99) mg/dL Plasma Lactic Acid Rangel (0.7-2.0) mmol/L Calcium 9.2 (8.4-10.2) mg/dL Magnesium 2.1 (1.6-2.3) mg/dL Total Bilirubin 0.4 (0.2-1.3) mg/dL AST 20 (14-36) U/L ALT 14 (4-34) U/L Alkaline Phosphatase 103 (38-126) U/L Lactate Dehydrogenase 437 (313-618) U/L C-Reactive Protein 1.3 H (<1.0) mg/dL Total Protein 6.6 (6.3-8.2) g/dL Albumin 3.8 (3.5-5.0) g/dL Coronavirus (PCR) (Not Detectd) 09/30/21 09/30/21 Range/Units 22:09 22:09 WBC (3.8-10.6) k/uL RBC (3.80-5.40) m/uL Hgb (11.4-16.0) gm/dL Hct (34.0-46.0) % MCV (80.0-100.0) fL MCH (25.0-35.0) pg MCHC (31.0-37.0) g/dL RDW (11.5-15.5) % Plt Count (150-450) k/uL MPV Neutrophils % % Lymphocytes % % Monocytes % % Eosinophils % % Basophils % % Neutrophils # (1.3-7.7) k/uL Lymphocytes # (1.0-4.8) k/uL Monocytes # (0-1.0) k/uL Eosinophils # (0-0.7) k/uL Basophils # (0-0.2) k/uL PT (9.0-12.0) sec INR (<1.2) APTT (22.0-30.0) sec Sodium (137-145) mmol/L Potassium (3.5-5.1) mmol/L Chloride (98-107) mmol/L Carbon Dioxide (22-30) mmol/L Anion Gap mmol/L BUN (7-17) mg/dL Creatinine (0.52-1.04) mg/dL Est GFR (CKD-EPI)AfAm (>60 ml/min/1.73 sqM) Est GFR (CKD-EPI)NonAf (>60 ml/min/1.73 sqM) Glucose (74-99) mg/dL Plasma Lactic Acid Rangel 0.9 (0.7-2.0) mmol/L Calcium (8.4-10.2) mg/dL Magnesium (1.6-2.3) mg/dL Total Bilirubin (0.2-1.3) mg/dL AST (14-36) U/L ALT (4-34) U/L Alkaline Phosphatase (38-126) U/L Lactate Dehydrogenase (313-618) U/L C-Reactive Protein (<1.0) mg/dL Total Protein (6.3-8.2) g/dL Albumin (3.5-5.0) g/dL Coronavirus (PCR) Not Detected (Not Detectd) Disposition <Rubin Douglass - Last Filed: 09/30/21 22:13> Is patient prescribed a controlled substance at d/c from ED?: No Time of Disposition: 23:27 <Annabella Deal - Last Filed: 09/30/21 23:41> Clinical Impression: Acute exacerbation of COPD with asthma Disposition: HOME SELF-CARE Condition: Good Instructions (If sedation given, give patient instructions): Asthma (ED), COPD (Chronic Obstructive Pulmonary Disease) (ED) Additional Instructions: Take medications as directed. Complete antibiotic and steroid prescriptions and full. Continue home breathing treatments, do them every 4 hours while sick. Follow-up with her primary care physician for recheck in 1-2 days. Return for any new, worsening, or concerning symptoms. Prescriptions: predniSONE 50 mg PO DAILY #5 tablet Azithromycin [Zithromax Z-pack (6 tabs)] 0 mg PO DIRECTED #6 tab Referrals: Robbin Figueredo MD [Primary Care Provider] - 1-2 days
[2021-09-30] MEDS ORDERED: ACETAMINOPHEN TAB 500 MG TAB PO STA (21:37)
--- NOTE | 2021-09-30 22:00 | XR ---
EXAMINATION TYPE: XR chest 1V portable DATE OF EXAM: 09/30/2021 COMPARISON: NONE HISTORY: Chest pain TECHNIQUE: 2 views FINDINGS: There is no heart failure nor confluent pneumonic infiltrate. Costophrenic angles are clear . There are no hilar masses. There is mild thoracic dextroscoliosis. IMPRESSION: No active cardiopulmonary disease. Normal heart. No change.
[2021-09-30 22:20] VITALS: RESP 18
[2021-09-30 22:34] LABS: Basophils # (A) 0.1 k/uL (0-0.2); Basophils % (A) 1 %; Eosinophils # (A) 0.6 k/uL (0-0.7); Eosinophils % (A) 6 %; HCT 42.7 % (34.0-46.0); HGB 14.5 gm/dL (11.4-16.0); Lymphocytes % (A) 20 %; MCHC 33.9 g/dL (31.0-37.0); MCV 88.4 fL (80.0-100.0); Mean Platelet Volume 8.3; Monocytes # (A) 0.6 k/uL (0-1.0); Monocytes % (A) 6 %; Neutrophils # (A) 6.5 k/uL (1.3-7.7); Neutrophils % (A) 66 %; Platelet Count 285 k/uL (150-450); RBC 4.83 m/uL (3.80-5.40); RDW 12.7 % (11.5-15.5); WBC 9.9 k/uL (3.8-10.6)
[2021-09-30 22:45] LABS: INR 0.9 (<1.2)
[2021-09-30 22:46] LABS: Prothrombin Time 10.1 sec (9.0-12.0)
[2021-09-30 22:51] LABS: ALT 14 U/L (4-34); AST 20 U/L (14-36); African American GFR (CKD) >90 (>60 ml/min/1.73 sqM); Albumin 3.8 g/dL (3.5-5.0); Alkaline Phosphatase 103 U/L (38-126); Anion Gap 9 mmol/L; Blood Urea Nitrogen 18 mg/dL (7-17); C Reactive Protein 1.3 mg/dL (<1.0); Calcium 9.2 mg/dL (8.4-10.2); Carbon Dioxide 21 mmol/L (22-30); Chloride 107 mmol/L (98-107); Glucose 111 mg/dL (74-99); LDH 437 U/L (313-618); Magnesium 2.1 mg/dL (1.6-2.3); Non-African American GFR(CKD) >90 (>60 ml/min/1.73 sqM); Potassium 3.8 mmol/L (3.5-5.1); Sodium 137 mmol/L (137-145); Total Bilirubin 0.4 mg/dL (0.2-1.3); Total Protein 6.6 g/dL (6.3-8.2)
[2021-09-30] MEDS ORDERED: methylPREDNISolone SOD SUCCI 125 MG/2 ML VIAL IV STA (23:01)
[2021-09-30] MEDS ORDERED: IPRATROPIUM-ALBUTEROL 3 ML NEB INHALATION STA (23:01)
[2021-09-30 23:04] LABS: Partial Thromboplastin Time 21.4 sec (22.0-30.0)
[2021-09-30 23:14] VITALS: BP 165/100; PULSE 85
[2021-09-30] MEDS ORDERED: AZITHROMYCIN 500 MG TAB PO STA (23:25)
[2021-09-30] MEDS ORDERED: ALBUTEROL HFA INHALER INHALATION ONE (23:45)
== END 2021-09-30 23:49 | disposition home or self-care (01) ==
LOC: EC 20:56
DX: J44.1 Chronic obstructive pulmonary disease with (acute) exacerbation (principal); E78.5 Hyperlipidemia, unspecified; I10 Essential (primary) hypertension; M19.90 Unspecified osteoarthritis, unspecified site; Z20.822 Contact with and (suspected) exposure to COVID-19; Z90.89 Acquired absence of other organs
CPT/HCPCS: 99285; 96374; 36415; 93005; 80053; 82728; 83605; 83615; 83735; 85025; 85610; 85730; 86140; 84145; 87635; 71045; J2930

== ENCOUNTER → 2022-01-31 | Outpatient (CLI) | payer MEDICARE ==
[2022-01-31 19:20] LABS: T4, Free (Free Thyroxine) 1.44 ng/dL (0.800-1.800)
== END | disposition home or self-care (01) ==
LOC: LABWHC1 10:57
PROVIDERS: ATTEND Internal Medicine Endocrinology, Diabetes & Metabolism
DX: E04.2 Nontoxic multinodular goiter (principal)
CPT/HCPCS: 36415; 84439; 84443

== ENCOUNTER → 2022-05-04 | Outpatient (CLI) | payer MEDICARE ==
--- NOTE | 2022-05-07 20:12 | MM ---
Reason for Exam: Screening (asymptomatic). Last mammogram was performed 8 year(s) and 2 month(s) ago. Patient History: Menarche at age 16. First Full-Term at age 20. Postmenopausal. Estrogen for 2 years until age 43. Progesterone for 2 years until age 43. Benign Excisional Biopsy on the left side. Risk Values: Alejandra 5 year model risk: 1.6%. NCI Lifetime model risk: 5.4%. Prior Study Comparison: 03/22/2009 Bilateral Screening Mammogram, [facility]. 11/20/2011 Bilateral Screening Mammogram, [facility]. 03/31/2014 Bilateral Screening Mammogram, [facility]. Tissue Density: There are scattered fibroglandular densities. Findings: Analyzed By CAD. Chronic nodularity lateral right breast. No significant change from prior exams. Overall Assessment: Negative, BI-RAD 1 Management: Screening Mammogram of both breasts in 1 year. A clinical breast exam by your physician is recommended on an annual basis and results should be correlated with mammographic findings. Also, the patient should continue monthly self breast exams. Electronically signed and approved by: Bret Johnson M.D. Radiologist
== END | disposition home or self-care (01) ==
LOC: RADMAMWWP 08:25
PROVIDERS: ATTEND Family Medicine
DX: Z12.31 Encounter for screening mammogram for malignant neoplasm of breast (principal)
CPT/HCPCS: 77063; 77067

== ENCOUNTER → 2023-04-02 | Outpatient (CLI) | payer MEDICARE ==
[2023-04-03 02:32] LABS: Hepatitis A Antibody IgM Nonreactive (Nonreactive); Hepatitis B Core IgM Nonreactive (Nonreactive); Hepatitis B Surface Antigen Nonreactive (Nonreactive); Hepatitis C IgG Antibody Nonreactive (Nonreactive)
[2023-04-03 02:52] LABS: ALT 28 U/L (8-44); AST 30 U/L (13-35); African American GFR (CKD) 105.8 (60.0-200.0); Albumin 4.2 g/dL (3.8-4.9); Albumin/Globulin Ratio 1.65 (1.60-3.17); Alkaline Phosphatase 117 U/L (41-126); BUN/Creat Ratio 21.89 Ratio (12.00-20.00); Blood Urea Nitrogen 13.9 mg/dL (9.0-27.0); Calcium 9.5 mg/dL (8.7-10.3); Carbon Dioxide 24.8 mmol/L (20.0-27.5); Chloride 106 mmol/L (96-109); Globulin 2.5 g/dL (1.6-3.3); Glucose 102 mg/dL (70-110); Non-African American GFR(CKD) 91.3 (60.0-200.0); Potassium 4.2 mmol/L (3.5-5.5); Sodium 145 mmol/L (135-145); Total Bilirubin <0.15 mg/dL (0.30-1.20); Total Protein 6.7 g/dL (6.2-8.2)
[2023-04-03 06:52] LABS: Basophils # (A) 0.04 X 10*3/uL (0.00-0.10); Basophils % (A) 0.5 %; Eosinophils # (A) 0.28 X 10*3/uL (0.04-0.35); Eosinophils % (A) 3.3 %; HCT 45.3 % (37.2-46.3); HGB 14.5 g/dL (12.0-15.0); Immature Grans, Automated 0.4 %; Lymphocytes # (A) 1.95 X 10*3/uL (0.90-5.00); MCH 29.5 pg (27.0-32.0); MCV 92.1 fL (80.0-97.0); Mean Platelet Volume 12.1 fL (9.5-12.2); Monocytes # (A) 0.83 X 10*3/uL (0.20-1.00); Monocytes % (A) 9.8 %; NRBC Per 100 WBC 0 /100 WBCS (0.0-0.0); Neutrophils # (A) 5.36 X 10*3/uL (1.80-7.70); Platelet Count 229 X 10*3/uL (140-440); RBC 4.92 X 10*6/uL (4.10-5.20); RDW 12.4 % (11.5-14.5); WBC 8.49 X 10*3/uL (4.50-10.00)
[2023-04-03 06:53] LABS: RBC Morphology NORMAL
== END | disposition home or self-care (01) ==
LOC: LABWHC1 14:04
PROVIDERS: ATTEND Family Medicine
DX: Z13.0 Encounter for screening for diseases of the blood and blood-forming organs and certain disorders involving the immune mechanism (principal); Z13.1 Encounter for screening for diabetes mellitus; E78.2 Mixed hyperlipidemia; E03.9 Hypothyroidism, unspecified; Z20.5 Contact with and (suspected) exposure to viral hepatitis
CPT/HCPCS: 36415; 80053; 80074; 85025

== ENCOUNTER → 2024-11-10 | Outpatient (CLI) | payer MEDICARE ==
--- NOTE | 2024-11-15 02:44 | MM ---
Reason for Exam: Screening (asymptomatic). Last mammogram was performed 2 year(s) and 6 month(s) ago. Patient History: Menarche at age 16. First Full-Term at age 20. Postmenopausal. Patient has history of breast feeding. Estrogen for 2 years until age 43. Progesterone for 2 years until age 43. Benign Excisional Biopsy on the left side. Risk Values: Alejandra 5 year model risk: 1.7%. NCI Lifetime model risk: 4.9%. Prior Study Comparison: 11/20/2011 Bilateral Screening Mammogram, [facility]. 03/31/2014 Bilateral Screening Mammogram, [facility]. 05/04/2022 Bilateral MG 3D screening mammo w/cad, [facility]. Tissue Density: There are scattered areas of fibroglandular density. Findings: Analyzed By CAD. The pattern is symmetrical. There is a new distortion along the inferior margin of the mid right breast. Additional evaluation is recommended. Small focal asymmetry in the upper outer right breast. Left breast:No suspicious groups of microcalcifications, spiculated or lobular masses, architectural distortion or other secondary signs of malignancy are mammographically apparent. Overall Assessment: Incomplete: need additional imaging evaluation, BI-RAD 0 Management: Diagnostic Mammogram of the right breast. A negative mammogram report should not preclude additional follow up of suspicious palpable abnormalities. Patient should continue monthly self breast exam. A clinical breast exam by your physician is recommended on an annual basis and results should be correlated with mammographic findings. Note on Alejandra scores and lifetime risk: 1. A Alejandra score greater than 3% is considered moderate risk. If this is the case, consider specialist referral to assess eligibility for a risk reducing agent. 2. If overall lifetime risk for the development of breast cancer is 20% or higher, the patient may qualify for future screening with alternating mammogram and breast MRI. [facility], , 11/15/2024 2:40 AM. Electronically signed and approved by: Vidal Fierro D.O. Radiologis
== END | disposition home or self-care (01) ==
LOC: RADMAMWWP 13:59
PROVIDERS: ATTEND Family Medicine
DX: Z12.31 Encounter for screening mammogram for malignant neoplasm of breast (principal); Z78.0 Asymptomatic menopausal state; R92.323 Mammographic fibroglandular density, bilateral breasts
CPT/HCPCS: 77063; 77067

== ENCOUNTER → 2024-11-10 | Outpatient (CLI) | payer MEDICARE ==
[2024-11-10 19:24] LABS: Basophils # (A) 0.03 X 10*3/uL (0.00-0.10); Basophils % (A) 0.4 %; Eosinophils % (A) 2.6 %; HCT 41.4 % (37.2-46.3); Lymphocytes # (A) 2.01 X 10*3/uL (0.90-5.00); Lymphocytes % (A) 26.4 %; MCH 28.9 pg (27.0-32.0); MCHC 31.4 g/dL (32.0-37.0); Mean Platelet Volume 11.3 FL (9.5-12.2); Monocytes # (A) 0.59 X 10*3/uL (0.20-1.00); Monocytes % (A) 7.8 %; NRBC Per 100 WBC 0 X 10*3/uL (0.00-0.01); Neutrophils # (A) 4.72 X 10*3/uL (1.80-7.70); Neutrophils % (A) 62.1 %; Platelet Count 227 X 10*3/uL (140-440)
[2024-11-10 21:05] LABS: Chol/HDL Ratio 2.77 Ratio
[2024-11-10 21:06] LABS: ALT 25 U/L (8-44); AST 20 U/L (13-35); Albumin 3.8 g/dL (3.8-4.9); Albumin/Globulin Ratio 1.81 Ratio (1.60-3.17); Alkaline Phosphatase 99 U/L (41-126); BUN/Creat Ratio 28.71 Ratio (12.00-20.00); Blood Urea Nitrogen 20.1 mg/dL (9.0-27.0); Calcium 8.9 mg/dL (8.7-10.3); Carbon Dioxide 21.5 mmol/L (21.6-31.8); Chloride 108 mmol/L (96-109); Globulin 2.1 g/dL (1.6-3.3); Glucose 119 mg/dL (70-110); LDL Cholesterol,Calculated 61.7 mg/dL (0.0-131.0); Sodium 142 mmol/L (135-145); Total Bilirubin 0.2 mg/dL (0.3-1.2); Total Protein 5.9 g/dL (6.2-8.2)
== END | disposition home or self-care (01) ==
LOC: LABWHC1 14:52
PROVIDERS: ATTEND Family Medicine
DX: E11.65 Type 2 diabetes mellitus with hyperglycemia (principal)
CPT/HCPCS: 36415; 80053; 80061; 83036; 85025

== ENCOUNTER → 2024-12-09 | Outpatient (CLI) | payer MEDICARE ==
--- NOTE | 2024-12-09 13:15 | MM ---
Reason for Exam: Additional evaluation requested from abnormal screening. Last screening mammogram was performed less than 1 month ago. Patient History: Menarche at age 16. First Full-Term at age 20. Postmenopausal. Patient has history of breast feeding. Estrogen for 2 years until age 43. Progesterone for 2 years until age 43. Benign Excisional Biopsy on the left side. Risk Values: Alejandra 5 year model risk: 1.7%. NCI Lifetime model risk: 4.7%. Tissue Density: Right: The breasts are almost entirely fatty. Findings: Analyzed By CAD. Area of concern/asymmetry compresses out on spot compression imaging. No suspicious masses, calcifications or distortions. Overall Assessment: Benign, BI-RAD 2 Management: Screening Mammogram of both breasts in 1 year. Results were given to the patient verbally at the time of exam. Patient should continue monthly self-breast exams. A clinical breast exam by your physician is recommended on an annual basis. This exam should not preclude additional follow-up of suspicious palpable abnormalities. Note on Alejandra scores and lifetime risk: 1. A Alejandra score greater than 3% is considered moderate risk. If this is the case, consider specialist referral to assess eligibility for a risk reducing agent. 2. If overall lifetime risk for the development of breast cancer is 20% or higher, the patient may qualify for future screening with alternating mammogram and breast MRI. [facility], , 12/09/2024 1:12 PM. Electronically signed and approved by: Dheeraj Kincaid DO
== END | disposition home or self-care (01) ==
LOC: RADMAMWWP 12:50
PROVIDERS: ATTEND Family Medicine
DX: R92.8 Other abnormal and inconclusive findings on diagnostic imaging of breast (principal); Z78.0 Asymptomatic menopausal state
CPT/HCPCS: 77061; 77065